=== PATIENT | male | born 1965 | race Caucasian/White ===

== ENCOUNTER 2019-02-12 03:28 | Emergency (ER) | payer BC ==
[2019-02-12] MEDS ORDERED: DIPHENHYDRAMINE HCL 50 MG/ML VIAL IM ONE (03:45)
[2019-02-12] MEDS ORDERED: METHYLPREDNISOLONE PF 125MG/VIAL IM ONE (03:45)
--- NOTE | 2019-02-12 03:54 | Emergency Department Record ---
History of Present Illness - General Chief complaint: Urticaria Stated complaint: RASH Time Seen by Provider: 02/12/19 03:38 Source: Patient Mode of Arrival: Ambulatory Limitations: No limitations - History of Present Illness Initial comments: pt has had an itchy rash for a week. he does not know of any exposures MD complaint: Rash Onset/Timin -: Days(s) Location: Generalized, LUE, RUE, L hand, R hand, LLE, RLE Severity: Mild, Moderate Severity scale (1-10): 1 Quality: Aching Consistency: Constant - Related Data Home Medications Medication Instructions Recorded Confirmed Last Taken Dapagliflozin Propanediol [Farxiga] 10 mg PO DAILY 02/12/19 02/12/19 1 Day Ago ~02/11/19 Dulaglutide [Trulicity] 1.5 mg SQ WEEKLY 02/12/19 02/12/19 1 Day Ago ~02/11/19 Ergocalciferol (Vitamin D2) 50,000 unit PO WEEKLY 02/12/19 02/12/19 1 Day Ago [Vitamin D2] ~02/11/19 Fenofibric Acid (Choline) 135 mg PO DAILY 02/12/19 02/12/19 1 Day Ago [Fenofibric Acid] ~02/11/19 Insulin Degludec [Tresiba 120 unit SQ DAILY 02/12/19 02/12/19 1 Day Ago Flextouch U-200] ~02/11/19 Losartan/Hydrochlorothiazide 1 each PO DAILY 02/12/19 02/12/19 1 Day Ago [Losartan-Hctz 50-12.5 mg Tab] ~02/11/19 Metformin HCl 1,000 mg PO BID 02/12/19 02/12/19 1 Day Ago ~02/11/19 Previous Rx's Medication Instructions Recorded Prednisone [Prednisone 20Mg] 20 mg PO Q12HR #6 tab 02/12/19 Allergies Allergy/AdvReac Type Severity Reaction Status Date / Time No Known Drug Allergies Allergy Verified 02/12/19 03:36 Travel Screening - Travel/Exposure Within Last 30 Days Have you traveled within the last 30 days?: No - Travel/Exposure Within Last Year Have you traveled outside the [place] in the last year?: No - Additonal Travel Details Have you been exposed to anyone with a communicable illness?: No - Travel Symptoms Symptom Screening: None Review of Systems Reviewed: No additional complaints except as noted below Constitutional: Reports: As per HPI. Denies: Chills, Fever, Malaise, Night sweats, Weakness, Weight change Eyes: Reports: As per HPI. Denies: Eye discharge, Eye pain, Photophobia, Vision change ENT: Reports: As per HPI. Denies: Congestion, Dental pain, Ear pain, Epistaxis, Hearing loss, Throat pain Respiratory: Reports: As per HPI. Denies: Cough, Dyspnea, Hemoptysis, Stridor, Wheezes Cardiovascular: Reports: As per HPI. Denies: Arrhythmia, Chest pain, Dyspnea on exertion, Edema, Murmurs, Orthopnea, Palpitations, Paroxysmal nocturnal dyspnea, Rheumatic Fever, Syncope Endocrine: Reports: As per HPI. Denies: Fatigue, Heat or cold intolerance, Polydipsia, Polyuria Gastrointestinal: Reports: As per HPI. Denies: Abdominal pain, Constipation, Diarrhea, Hematemesis, Hematochezia, Melena, Nausea, Vomiting Genitourinary: Reports: As per HPI. Denies: Dysuria, Frequency, Hematuria, Incontinence, Retention, Testicular pain, Testicular mass, Urgency Musculoskeletal: Reports: As per HPI. Denies: Arthralgia, Back pain, Gout, Joint swelling, Myalgia, Neck pain Skin: Reports: As per HPI, Rash. Denies: Bruising, Change in color, Change in hair/nails, Lesions, Pruritus Neurological: Reports: As per HPI. Denies: Abnormal gait, Confusion, Headache, Numbness, Paresthesias, Seizure, Tingling, Tremors, Vertigo, Weakness Psychiatric: Reports: As per HPI. Denies: Anxiety, Auditory hallucinations, Depression, Homicidal thoughts, Suicidal thoughts, Visual hallucinations Hematological/Lymphatic: Reports: As per HPI. Denies: Anemia, Blood Clots, Easy bleeding, Easy bruising, Swollen glands Past Medical History - SOCIAL HISTORY Smoking Status: Never smoker Alcohol Use: Occasional Drug Use: None - RESPIRATORY Hx Respiratory Disorders: No - CARDIOVASCULAR Hx Cardio Disorders: Yes Hx Hypertension: Yes - NEURO Hx Neuro Disorders: No - GI Hx GI Disorders: No - Hx Genitourinary Disorders: No - ENDOCRINE Hx Endocrine Disorders: Yes Hx Diabetes: Yes (IDDM) - MUSCULOSKELETAL Hx Musculoskeletal Disorders: No - PSYCH Hx Psych Problems: Yes Hx Anxiety: Yes (in the past) Hx Depression: Yes Family Medical History Any Significant Family History?: Yes Family Hx Comment (NOT TO BE USED IN PLACE OF ITEMS BELOW): denies Physical Exam - General General Appearance: Alert, Oriented x3, Cooperative, Mild distress - Head Head exam: Normal inspection - Eye Eye exam: Normal appearance, PERRL, EOMI Pupils: Normal accommodation - ENT ENT exam: Normal exam, Mucous membranes moist, Normal external ear exam, Normal orophraynx Ear exam: Normal external inspection. negative: External canal tenderness Nasal Exam: Normal inspection. negative: Discharge, Sinus tenderness Mouth exam: Normal external inspection, Tongue normal Teeth exam: Normal inspection. negative: Dental caries Throat exam: Normal inspection. negative: Tonsillar erythema, Tonsillar exudate - Neck Neck exam: Normal inspection, Full ROM. negative: Tenderness - Respiratory Respiratory exam: Normal lung sounds bilaterally. negative: Respiratory distress - Cardiovascular Cardiovascular Exam: Regular rate, Normal rhythm, Normal heart sounds - GI/Abdominal GI/Abdominal exam: Soft, Normal bowel sounds. negative: Tenderness - Rectal Rectal exam: Deferred - exam: Deferred - Extremities Extremities exam: Normal inspection, Full ROM, Normal capillary refill. negative: Tenderness - Back Back exam: Reports: Normal inspection, Full ROM. Denies: Muscle spasm, Rash noted, Tenderness - Neurological Neurological exam: Alert, Normal gait, Oriented X3, Reflexes normal - Psychiatric Psychiatric exam: Normal affect, Normal mood - Skin Skin exam: Dry, Intact, Normal color, Urticaria, Warm Distribution of rash: RUE, LUE, RLE, LLE Description of rash: Urticarial Course Vital Signs 02/12/19 03:33 Temperature 97.9 F Pulse Rate [ 80 Left] Respiratory 16 Rate Blood Pressure 150/81 [Left] Pulse Ox 98 Disposition Disposition: Discharge Clinical Impression: Urticaria Disposition: Home, Self-Care Condition: (1) Good Instructions: Urticaria (ED) Additional Instructions: follow up with family doctor. return sooner if worse. benadryl every 6 hrs as needed. Prescriptions: Prednisone [Prednisone 20Mg] 20 mg PO Q12HR #6 tab Quality - Quality Measures Quality Measures: N/A - Blood Pressure Screening Does Patient Have Any of the Following: No Blood Pressure Classification: Pre-Hypertensive BP Reading Systolic Measurement: 150 Diastolic Measurement: 81 Screening for High Blood Pressure: < Pre-Hypertensive BP, F/U Documented > [[id number]] Pre-Hypertensive Follow-up Interventions: Follow-up with rescreen every year.
== END 2019-02-12 04:21 | disposition home or self-care (01) ==
LOC: ER 03:28
DX: L50.9 Urticaria, unspecified (principal)
CPT/HCPCS: 96372; 99284; J1200; J2930